=== PATIENT | male | born 1975 | race Caucasian/White ===

== ENCOUNTER 2016-12-06 02:15 | Emergency (ER) | payer BC ==
[~2016-12-06] VITALS: Ht 177.8 cm; Wt 88.5 kg
[2016-12-06] MEDS ORDERED: MAG HYDROX/AL HYDROX/SIMETH 30 ML UDC ONE ×2 (02:46→03:37)
[2016-12-06] MEDS ORDERED: LIDOCAINE VISCOUS 2% UD 15 ML UDC ONE ×2 (02:46→03:37)
[2016-12-06] MEDS ORDERED: LIDOCAINE VISCOUS 2% UD 15 ML UDC MM ONE ×2 (03:00→04:00)
[2016-12-06] MEDS ORDERED: MAG HYDROX/AL HYDROX/SIMETH 30 ML UDC PO ONE ×2 (03:00→04:00)
[2016-12-06] MEDS ORDERED: ONDANSETRON HCL/PF 4 MG/2 ML VIAL ONE (03:11)
[2016-12-06] MEDS ORDERED: ONDANSETRON HCL/PF 4 MG/2 ML VIAL IM ONE (03:30)
--- NOTE | 2016-12-06 04:15 | NUR ---
Patient discharged to home in stable condition. Written and verbal after care instructions given. Patient verbalizes understanding of instruction.
[2016-12-06 04:17] VITALS: BP 127/63
== END 2016-12-06 04:17 | disposition home or self-care (01) ==
LOC: ER 02:19
DX: K21.9 Gastro-esophageal reflux disease without esophagitis (principal)
CPT/HCPCS: 96372; 99283; A4606; J2405; Z7610